=== PATIENT | female | born 2005 | race Two or more races ===

== ENCOUNTER 2025-06-30 18:15 | Emergency (ER) | payer OTHER ==
[~2025-06-30] VITALS: Ht 152.4 cm; Wt 77.1 kg
[2025-06-30] MEDS ORDERED: 0.9 % SODIUM CHLORIDE 1,000 ML IV SCH (19:30)
[2025-06-30 20:03] LABS: BASO % 1.5 % (0.1-1.2); EOS # 0.04 (0.04-0.54); EOS % 0.2 % (0.7-7.0); LYMPH # 9.71 (1.18-3.74); LYMPH % 55.9 % (19.3-53.1); MEAN PLATELET VOLUME 9.20 fl (9.4-12.4); MONO # 1.26 (0.24-0.82); MONO % 7.3 % (4.7-12.5); NEUT # 5.98 (1.56-6.13); NEUT % 34.5 % (34.0-71.1); RED CELL DISTRIBUTION WIDTH 12.5 % (11.6-14.4)
[2025-06-30 20:11] LABS: ERYTHROCYTE SEDIMENTATION RATE 28 mm/hr (0-20)
[2025-06-30 20:34] LABS: ALT/SGPT 142.0 U/L (12-78); AST/SGOT 80.0 U/L (15-37); BILIRUBIN TOTAL 0.64 mg/dL (0.3-1.2); BUN CREA RATIO 15.0 (7.0-25.0); CREATININE SERUM 0.86 mg/dL (0.55-1.02); GFR 84.12; GLOBULINA 4.8 G/DL (2.4-3.5); GLUCOSE FASTING 83.0 mg/dL (65-100); OSMOLALITY SERUM 277.0 MOSM/KG (275-295)
[2025-06-30 21:15] LABS: EOSINOPHIL MAN 1.0 %; LYMPHOCYTE MAN 42.0 %; MONOCYTE MAN 4.0 %; NEUTROPHILS MAN 26.0 %
[2025-06-30 21:21] LABS: COVID-19 AG NEGATIVE (NEGATIVE)
[2025-06-30] MEDS ORDERED: CEFTRIAXONE SODIUM 2,000 MG VIAL IV STA (23:32)
[2025-06-30] MEDS ORDERED: FAMOTIDINE/PF 20 MG/2 ML VIAL IV STA (23:33)
[2025-06-30] MEDS ORDERED: DEXAMETHASONE SODIUM PHOSP/PF 10 MG/ML VIAL IV STA (23:33)
[2025-07-01] MEDS ORDERED: ACETAMINOPHEN 500 MG GEL..CAP PO STA (02:29)
[2025-07-01] MEDS ORDERED: NEOMYCIN/POLYMYXIN B/HYDROCORT 20 DR/ML BOTTLE OT STA (02:29)
[2025-07-01] MEDS ORDERED: ORASEP SOLUTION30 M1 MM (07:28)
[2025-07-01] MEDS ORDERED: DOLOGESIC-DF 51 EACH PO (07:28)
[2025-07-01] MEDS ORDERED: CEPHALEXIN250 MG/5 M PO (07:28)
== END 2025-07-01 09:34 ==
LOC: ER 18:15 → EMR PED 18:15
PROVIDERS: Physician Assistant Medical
DX: J03.80 Acute tonsillitis due to other specified organisms (principal); B27.80 Other infectious mononucleosis without complication; Z88.6 Allergy status to analgesic agent; R74.01 Elevation of levels of liver transaminase levels; Z20.822 Contact with and (suspected) exposure to COVID-19